=== PATIENT | female | born 1955 | race Caucasian/White ===

== ENCOUNTER → 2020-07-02 11:46 | Outpatient (CLI) | payer BC, SELFPAY ==
--- NOTE | 2020-07-02 | DI.MRI.S_ITS ---
PROCEDURE: MR ANKLE LT WO CON INDICATIONS: Pain in left ankle and joints of left foot TECHNIQUE: Noncontrast sagittal T1 spin echo and T2 fast spin echo with fat saturation, axial proton density fast spin echo and T2 fast spin echo with fat saturation, coronal T1 spin echo and T2 fast spin echo with fat saturation through the ankle/hindfoot. COMPARISON: None. FINDINGS: Image quality: Excellent. Bones and joints: No bone marrow contusions or fractures. No hindfoot coalitions. No osteochondral injuries of the talar dome. Tibiotalar joint effusion. Incidentally noted unfused accessory navicular Medial structures: Posterior tibialis intact. There is mild posterior tibialis tenosynovitis. Flexor digitorum longus intact. Flexor hallucis longus tendon intact. The posterior tibial neurovascular bundle appears normal within the tarsal tunnel, without extrinsic mass effect. Deltoid ligament complex appears intact. The spring ligament appears intact. Lateral structures: Anterior talofibular ligament is not seen presumably ruptured. Calcaneofibular ligament intact. Posterior talofibular ligament intact. Anterior and posterior tibiofibular ligaments appear intact, as is the intermalleolar ligament. Tibiofibular syndesmosis is normal in width at 2 mm or less. Peroneus longus and brevis tendons appear normal. There is mild peroneal tenosynovitis. Bony peroneal tubercle and retrotrochlear prominence are normal in size. Sinus tarsi demonstrates normal fatty signal, without edema, fibrosis, or cyst formation. Anterior structures: Tibialis anterior intact. Extensor hallucis longus intact. Extensor digitorum longus tendon intact. Dorsal talonavicular ligament appears intact. Posterior and plantar structures: Low-grade chronic distal Achilles tendinopathy and mild thickening. Medial and lateral bands of the plantar fascia intact. No abductor digiti quinti muscle atrophy to suggest Rendon neuropathy. IMPRESSION: Rupture of the anterior talofibular ligament, likely chronic. Mild posterior tibialis and peroneal tenosynovitis Tibiotalar joint effusion Low-grade chronic distal Achilles tendinopathy and mild thickening. Dictated by: Kenny Josue M.D. on 07/02/2020 at 13:40 Approved by: Kenny Josue M.D. on 07/02/2020 at 14:34
--- NOTE | 2020-07-02 | DI.RAD.S_ITS ---
PROCEDURE: XR ANKLE LT MIN 3V INDICATIONS: Pain in left ankle and joints of left foot TECHNIQUE: 3 views of the ankle were acquired. COMPARISON: [facility], MR, MR ANKLE LT WO CON, 07/02/2020, 12:35. FINDINGS: Bones: No fractures or dislocations. Ankle mortise is normally aligned. No suspicious bony lesions. Mild degenerative joint disease at the tibiotalar joint, subtalar joint and talonavicular joint. Calcaneal spurring. Soft tissues: No tibiotalar joint effusion. Achilles tendon appears normal. IMPRESSION: 1. Mild degenerative joint disease. 2. Calcaneal spurring. Dictated by: Miranda Foster M.D. on 07/02/2020 at 13:53 Approved by: Miranda Foster M.D. on 07/02/2020 at 13:55
== END ==
PROVIDERS: Family Provider Nurse Practitioner; PCP Family Medicine; Referring Provider Podiatrist; Visit Provider Podiatrist
DX: M25.572 Pain in left ankle and joints of left foot (principal); S93.492A Sprain of other ligament of left ankle, initial encounter; M65.872 Other synovitis and tenosynovitis, left ankle and foot; M25.472 Effusion, left ankle
CPT/HCPCS: 73610; 73721

== ENCOUNTER → 2021-01-08 12:06 | Outpatient (CLI) | payer BC, SELFPAY ==
--- NOTE | 2021-01-08 | DI.MRI.S_ITS ---
PROCEDURE: MR KNEE RT WO CON INDICATIONS: unspecified internal derangement of right knee TECHNIQUE: Noncontrast sagittal PD fast spin echo and T2 fast spin echo with fat saturation, sagittal 3-D FLASH with fat saturation; coronal T1 spin echo and PD fast spin echo with fat saturation, and axial PD fast spin echo with fat saturation through the knee. COMPARISON: None. FINDINGS: Menisci: Medial meniscus: Intact. Lateral meniscus: Intact. Cruciate ligaments: Anterior cruciate ligament: Intact. Posterior cruciate ligament: Intact. Medial structures: The medial collateral ligament: Intact. Semimembranosus tendon: Intact. Visualized pes anserinus tendons: Intact. Bursal fluid: none. Lateral structures: The lateral collateral ligament intact. Biceps femoris tendon appears intact. Popliteus tendon grossly unremarkable. Iliotibial band appears intact. Anterior structures: Quadriceps tendon: Intact. Medial patellofemoral ligament: Intact. Lateral patellofemoral ligament: Intact. Patellar tendon: Mild tendinopathy. Anterior soft tissues: Prepatellar and superficial infrapatellar subcutaneous edema/fluid. Deep infrapatellar region: Normal. Bones and cartilage: Marrow: No focal marrow contusion or discrete low signal fracture line. Medial compartment: Diffuse partial-thickness loss of the femoral cartilage. Lateral compartment: Diffuse partial-thickness loss of the central weight-bearing femoral and tibial cartilage. Patellofemoral compartment: Near full-thickness loss of the cartilage overlying the medial patellar facet and diffuse partial-thickness loss of the remaining patellar cartilage. Partial-thickness loss of the central and medial femoral trochlear cartilage. Joint space: Large joint effusion. Trace fluid between the semimembranosus and medial gastrocnemius tendons without definite formed cyst. Presumed debris and/or reactive synovitis seen in the superior aspect of suprapatellar joint space. IMPRESSION: Moderate osteoarthritis. Large joint effusion, with debris and/or reactive synovitis in the suprapatellar recess. Patellar tendinopathy with adjacent fluid and edema. Dictated by: Kenny Josue M.D. on 01/08/2021 at 13:46 Approved by: Kenny Josue M.D. on 01/08/2021 at 13:54
== END ==
PROVIDERS: Family Provider Nurse Practitioner; PCP Family Medicine; Referring Provider Orthopaedic Surgery Adult Reconstructive Orthopaedic Surgery; Visit Provider Orthopaedic Surgery Adult Reconstructive Orthopaedic Surgery
DX: M23.91 Unspecified internal derangement of right knee (principal); M17.11 Unilateral primary osteoarthritis, right knee; M25.461 Effusion, right knee
CPT/HCPCS: 73721

== ENCOUNTER → 2023-10-18 14:05 | Outpatient (CLI) | payer MEDICARE, OTHER, SELFPAY ==
--- NOTE | 2023-10-18 | DI.RAD.S_ITS ---
Bone Density Report Name: AGUS GARCIA Age: 68 Sex: Female Ethnicity: White Date of : 1955 Indication: monitoring treatment; Referring Provider: UNSPECIFIED Study: Bone densitometry was performed. Exam Date: October 18, 2023 Accession number: [id number] Bone Density: Region BMD T-score Z-score Classification AP Spine(L2, L3) 1.026 -0.3 1.7 Normal Femoral Neck (Left) 0.654 -1.8 -0.1 Osteopenia Total Hip (Left) 0.833 -0.9 0.5 Normal Femoral Neck (Right) 0.761 -0.8 0.8 Normal Total Hip (Right) 0.867 -0.6 0.7 Normal Total Hip Mean 0.850 -0.8 0.6 Normal World Health Organization criteria for BMD impression classify patients as: Normal (T-score at or above -1.0), Osteopenia (T-score between -1.0 and -2.5), or Osteoporosis (T-score at or below -2.5). 10-year Fracture Risk: FRAX not reported because: Treated for osteoporosis Previous Exams: -- Region Exam Age BMD T-score BMD Change BMD Change Date g/cm2 vs Baseline vs Previous -- AP Spine (L2-L3) 10/18/2023 68 1.026 -0.3 -0.096 (-8.6%)# -0.068 (-6.3%)# 04/19/2007 51 1.094 0.3 -0.028 (-2.5%)* -0.028 (-2.5%)* 04/02/2006 50 1.122 0.6 Total Hip(Left) 10/18/2023 68 0.833 -0.9 -0.254 (-23.4%)# -0.175 (-17.4%)# 04/19/2007 51 1.008 0.5 -0.079 (-7.3%)* -0.079 (-7.3%)* 04/02/2006 50 1.087 1.2 Total Hip(Right) 10/18/2023 68 0.867 -0.6 -0.239 (-21.6%)# -0.164 (-15.9%)# 04/19/2007 51 1.031 0.7 -0.075 (-6.7%)* -0.075 (-6.7%)* 04/02/2006 50 1.106 1.3 -- *Denotes significance at 95% confidence level, LSC for AP Spine = 0.022 g/cm2, LSC for Total Hip = 0.027 g/cm2 Rate of change results reflect vertebral levels common to all scans # Denotes dissimilar scan types or analysis methods Impression: The patient has low bone mass, based on the Left Femoral Neck T-score. No significant bone loss was observed. Discussion: PATIENT UNDER TREATMENT WITH NO SIGNIFICANT BMD LOSS SINCE LAST EXAM. In an untreated patient, BMD typically declines with age. A lack of decline or gain is usually a sign that treatment is efficacious and fracture risk is reduced. It is important to ask patients whether they are taking their medications and to encourage continued and appropriate compliance with their osteoporosis therapies to reduce fracture risk. It is also important to review their risk factors and encourage appropriate calcium and vitamin D intakes, exercise, fall prevention and other lifestyle measures. Follow-Up: Consider a repeat BMD and Vertebral Fracture Assessment (VFA) exam in 2 years or sooner if medically necessary, to reassess this patient's status. Reported by: MONO KESSLER M.D. on 10/18/2023 2:38:00 PM.
== END ==
PROVIDERS: Family Provider Nurse Practitioner; PCP Family Medicine; Referring Provider Physician Assistant; Visit Provider Physician Assistant
DX: M81.0 Age-related osteoporosis without current pathological fracture (principal)
CPT/HCPCS: 77080

== ENCOUNTER 2024-11-01 17:52 | Emergency (ER) | payer MEDICARE, OTHER, SELFPAY ==
[2024-11-01] VITALS (16 sets, daily range): BP systolic 102–138; BP diastolic 64–81; PULSE 59–80; RESP 14–19; TEMP 36.7; O2SAT 94–100
--- NOTE | 2024-11-01 | DI.CT.S_ITS ---
PROCEDURE: CT ANGIO HEAD AND NECK INDICATIONS: syncope with clotting disorder TECHNIQUE: After the administration of intravenous contrast, 1 mm thick sections acquired from the aortic arch through the [place]. 3-dimensional mrskteu-ajcbpjwan-rgigjxcdsk (MIP) and/or volume rendering reformats were acquired of the central intracranial vasculature and neck separately. For radiation dose reduction, the following was used: automated exposure control, adjustment of mA and/or kV according to patient size. COMPARISON: None. FINDINGS: Image quality: Diagnostic. BRAIN: CSF spaces: Ventricles are normal in size and shape. Basal cisterns are patent. No extra-axial fluid collections. Brain: No significant abnormality of the brain can be seen. Skull and face: Calvarium and facial bones appear intact, without suspicious lesions. Orbits appear normal. Sinuses: Sinuses and mastoids are clear. HEAD CT ANGIOGRAPHY: Anterior circulation: Intracranial internal carotid arteries are normal in size and flow. The flow within the paired anterior cerebral arteries is normal and symmetric. The flow within the middle cerebral arteries is normal and symmetric. The anterior communicating artery is seen. No aneurysms are seen. Posterior circulation: Visualized portions of the vertebral arteries demonstrate normal caliber, and join to form a normal appearing basilar artery. Flow within the posterior cerebral arteries is normal and symmetric. No aneurysms are seen. NECK CT ANGIOGRAPHY: Carotid system: The great vessels demonstrate a conventional anatomy as they arise from the aortic arch. The origins of the common carotid arteries appear patent. The common carotid arteries demonstrate normal caliber and courses. The bifurcation regions are both widely patent. The internal carotid arteries demonstrate normal calibers and courses. Posterior circulation: The origins of the vertebral arteries both appear widely patent. Dominant left vertebral artery. The more superior extracranial portions of both vertebral arteries also demonstrate normal courses and calibers. They join to form a normal appearing basilar artery. Soft tissues: Visualized neck soft tissues demonstrate no suspicious abnormalities. Bones: No suspicious bony lesions. Visualized cervical spine appears normally aligned. IMPRESSION: 1. No significant intracranial arterial abnormality is seen. 2. No significant abnormality is seen within the arteries of the neck. Any quantitative measurements of stenosis were performed using NASCET criteria. Dictated by: Emile Sánchez M.D. on 11/01/2024 at 21:48 Approved by: Emile Sánchez M.D. on 11/01/2024 at 21:50
--- NOTE | 2024-11-01 17:53 | DI.RAD.S_ITS ---
PROCEDURE: XR CHEST 1V INDICATIONS: chest pain TECHNIQUE: One view of the chest was acquired. COMPARISON: None. FINDINGS: Surgical changes and devices: None. Lungs and pleura: Lungs are clear. No pleural effusions or pneumothorax. Mediastinum: Mediastinal contours appear normal. Heart size is normal. Bones and chest wall: No suspicious bony lesions. Overlying soft tissues appear unremarkable. IMPRESSION: No acute cardiopulmonary abnormality is seen. Approved by: Clayton Hand M.D. on 11/01/2024 at 18:41
--- NOTE | 2024-11-01 17:58 | EKG_ITS ---
[address] [address] Test Date: 2024-11-01 Pat Name: Carl Grullon Department: Room: Gender: Female [employer]: KERON : 1955 Requested By: Order Number: [id number] Reading MD: Fantasma Pérez Measurements Intervals [place] Rate: 63 P: 75 NC: 182 QRS: 55 QRSD: 90 T: 17 QT: 424 QTc: 433 Interpretive Statements Normal sinus rhythm ST & T wave abnormality, consider inferior ischemia Electronically Signed On 11-07-2024 20:08:10 PDT by Fantasma Pérez
[2024-11-01 18:25] LABS: Prothrombin Time 11.2 SECONDS (9.4-12.5)
--- NOTE | 2024-11-01 18:26 | PC.NURSE ---
Pt is awake and alert. Denies pain. Says that her BP is never 102/54. Usually 120/78
[2024-11-01 18:28] LABS: PTT Partial Thromboplastin Tim 27 SECONDS (25.1-36.5)
[2024-11-01 18:35] LABS: Alanine Aminotransferase 22 IU/L (<35); Albumin Globulin Ratio 1.4 (1.0-2.8); Alkaline Phosphatase 54 U/L (38-126); Aspartate Aminotransferase 36 IU/L (14-36); Blood Urea Nitrogen 13 mg/dL (7-17); Calcium 8.9 mg/dL (8.4-10.2); Carbon Dioxide 27 mmol/L (22-32); Chloride 106 mmol/L (98-107); Creatine Kinase 49 U/L (30-135); Estimated Glomerular Filt Rate > 60 mL/min (>60); Globulin 2.9 g/dL (1.7-4.1); Glucose 107 mg/dL (80-110); HEMOLYSIS 25 (0-50); Lipase 145 U/L (23-300); Magnesium 2.1 mg/dL (1.6-2.3); Sodium 138 mmol/L (137-145); Total Protein 6.9 g/dL (6.3-8.2)
[2024-11-01 18:46] LABS: Add Manual Diff / Slide Review NO; Basophils Absolute Auto 100 /uL (0-100); Basophils Percent Auto 0.7 % (0-2); Eosinophils Absolute Auto 100 /uL (0-450); Eosinophils Percent Auto 0.7 % (2-4); Hematocrit 37.1 % (36-46); Hemoglobin 12.2 g/dL (12.0-16.0); Lymphocytes Absolute Auto 600 /uL (1100-4500); Lymphocytes Percent Auto 7.7 % (25-40); Mean Corpuscular Hemoglobin 30.6 PG (26-34); Monocytes Absolute Auto 200 /uL (0-900); NT-proBNP (BNP-Adult 18+) 281 pg/mL (<125); Neutrophils Absolute Auto 7500 /uL (1500-7000); Neutrophils Percent Auto 88.9 % (50-75); Platelet Count 285 X10^3/uL (150-400); Red Blood Cell Count 3.99 X10^6/uL (4.0-5.2); Red Cell Distribution Width 14.4 % (11.6-14.8); White Blood Cell Count 8.4 X10^3/uL (4.5-11.0)
[2024-11-01 18:47] LABS: Mean Corpuscular HGB Conc 32.9 % (30-36)
--- NOTE | 2024-11-01 19:50 | PC.NURSE ---
pt ambulated to the br without any c/o dizziness or lightheadedness, gait steady
--- NOTE | 2024-11-01 20:04 | ED_ITS ---
HPI - Syncope General Chief Complaint: Syncope Stated Complaint: Syncope Time Seen by Provider: 11/01/24 20:04 Source: patient and EMS History of Present Illness HPI narrative: 69-year-old female with a history of endometrial cancer status post hysterectomy in 2005, hypothyroidism comes into the ED via EMS for evaluation of syncope.Patient states that she was on anticoagulation, warfarin 3 years ago for 15 years for a history of a clotting disorder but was taken off due to discussion with her doctor stating there is no benefit to staying on it any longer. According to the patient she had just completed a colonoscopy, she was returning to [place] on the [place], states that she had a witnessed syncopal episode lasting no more than 30 seconds no seizure-like activity, patient is awake alert oriented feeling well not complaining of any symptoms, she states that after her colonoscopy she tolerated a hamburger fine, she is not having any lower GI bleeding currently. She does state that prior to the syncopal episode she felt worsening cramping abdominal pressure. She denies any other symptoms such as headache visual disturbances chest pain shortness breath fever chills nausea vomiting and tolerating or any other GI/ symptoms time. Related Data Previous Rx's Medication Instructions Recorded levothyroxine 88 mcg tablet 0.088 mg PO QAM #90 tabs 03/02/16 estradiol 0.01% (0.1 mg/gram) 0.5 g vaginal 2XW #42.5 grams 11/24/23 vaginal cream (Estrace) Allergies Allergy/AdvReac Type Severity Reaction Status Date / Time LAUNDRY DETERGENT Allergy Intermediate RASH Uncoded 11/24/23 10:41 ENVIRONMENTAL Allergy Mild STUFFY NOSE Uncoded 11/24/23 10:41 Review of Systems Review of Systems Narrative: General: Denies fever, chills, weight loss HEENT: Denies headache, eye drainage, eye irritation, head trauma, sore throat, voice change Cardiovascular: Denies any chest pain, palpitations, tachycardia Respiratory: Denies any shortness of breath, cough, wheeze, stridor GI/: Denies any abdominal pain, nausea, vomiting, diarrhea, bright red blood per rectum, melanotic stools, urinary frequency, urinary retention, dysuria, hematuria MSK: Denies any joint pain, muscle pains, swelling Skin: Denies any rashes, lesions, discoloration Neuro: Positive syncope, Denies any headache, lightheadedness, dizziness, fainting, weakness Psych: Denies SI/HI Patient History Surgical History (Updated 11/23/17 @ 05:07 by Conversion Provider) Status post hysterectomy Family History (Updated 02/02/16 @ 00:00 by Conversion Provider) Father Age: 98 Hairy cell leukemia Prostate cancer Grandfather Heart disease Grandmother Heart disease High cholesterol Mother Age: 98 Manic depressive disorder High cholesterol Mental health problem Grandfather Heart disease Social History Smoking Status: Never smoker Smoking Status: Never smoker Exam Narrative Exam Narrative: General: Cooperative, well-developed, not in acute distress HEENT: Normocephalic, atraumatic, PERRLA, normal sclera, eyelids normal Neck: Active full range of motion, atraumatic Chest: Normal to inspection, negative crepitus, no overlying erythema ecchymosis Respiratory: Normal respiratory effort, not in acute respiratory distress, clear to auscultation bilaterally negative cough, wheeze, tachypnea, rhonchi, rales Cardiology: Regular rate rhythm negative gallop, murmur, rubs GI/: No tenderness to palpation, soft, non rigid, normal to inspection, exam deferred MSK: Full active range of motion in all 4 extremities, atraumatic, no tenderness to palpation of any bony prominences Skin: No rashes or lesions noted Neuro: NIH of 0, no focal deficits Alert awake oriented x3, moves all 4 extremities spontaneously, cranial nerves intact, able to answer all questions appropriately follows commands appropriately Psych: Cooperative, negative suicidal or homicidal ideations Initial Vital Signs Initial Vital Signs: Vital Signs Pulse Rate 66 11/01/24 17:54 Blood Pressure 102/67 11/01/24 17:54 Pulse Oximetry 98 11/01/24 17:54 Course Orders Ordered: ED Orders 11/01/24 17:53 XR chest 1V Stat EKG-12 Lead Stat 11/01/24 18:06 Complete Blood Count AUTO DIFF Stat Comprehensive Metabolic Panel Stat Lipase Stat Magnesium Stat NT-proBNP (BNP-Adult 18+) Stat PTT Partial Thromboplastin Fernando Stat Prothrombin Time INR Stat Troponin & CK Cardiac Panel Stat 11/01/24 20:05 Trop I [Troponin I] Stat 11/01/24 20:21 CT angio chest PE protocol Stat CT head/brain wo con Stat Discontinued Medications Aspirin (Aspirin 81 Mg Chew Tab) 324 mg PO NOW ONE Stop: 11/01/24 17:54 Last Admin: 11/01/24 18:40 Dose: Not Given Documented By: Sodium Chloride (Normal Saline 0.9%) 1,000 mls @ 1,000 mls/hr IV BOLUS ONE Stop: 11/01/24 21:20 Last Infusion: 11/01/24 22:23 Dose: Infused Documented By: Admin: 11/01/24 21:18 Dose: 1,000 mls/hr Documented By: OMER Vital Signs Vital signs: Vital Signs - 8 hr 11/01/24 17:54 11/01/24 17:54 11/01/24 18:00 Temperature Pulse Rate 66 63 Respiratory Rate Blood Pressure 102/67 Pulse Oximetry 98 100 Oxygen Delivery Method 11/01/24 18:20 11/01/24 18:30 11/01/24 19:00 Temperature 98.1 F Pulse Rate 80 69 69 Respiratory Rate 19 17 17 Blood Pressure 102/67 Pulse Oximetry 99 98 96 Oxygen Delivery Method Room Air Room Air 11/01/24 19:30 11/01/24 20:02 11/01/24 20:03 Temperature Pulse Rate 70 71 71 Respiratory Rate 18 17 Blood Pressure Pulse Oximetry 97 95 97 Oxygen Delivery Method 11/01/24 20:03 11/01/24 20:15 11/01/24 20:15 Temperature Pulse Rate 69 Respiratory Rate 19 Blood Pressure 125/64 116/66 Pulse Oximetry 96 Oxygen Delivery Method 11/01/24 20:30 11/01/24 20:30 11/01/24 21:20 Temperature Pulse Rate 72 71 Respiratory Rate 18 Blood Pressure 117/69 Pulse Oximetry 95 95 Oxygen Delivery Method 11/01/24 21:20 Temperature Pulse Rate Respiratory Rate Blood Pressure 138/81 Pulse Oximetry Oxygen Delivery Method MDM - Syncope Differential Diagnosis Differential diagnosis: Likely syncope due to orthostatic hypotension, vasovagal syncope, dehydration and other (Electrolyte abnormality, ACS, pneumonia) Lab Data 11/01/24 18:06 11/01/24 18:06 Labs: Lab Results 11/01/24 11/01/24 Range/Units 18:06 20:05 WBC 8.4 (4.5-11.0) X10^3/uL RBC 3.99 L (4.0-5.2) X10^6/uL Hgb 12.2 (12.0-16.0) g/dL Hct 37.1 (36-46) % MCV 93.0 (80-100) fL MCH 30.6 (26-34) PG MCHC 32.9 (30-36) % RDW 14.4 (11.6-14.8) % Plt Count 285 (150-400) X10^3/uL Neut % (Auto) 88.9 H (50-75) % Lymph % (Auto) 7.7 L (25-40) % Morrison % (Auto) 2.0 L (3-14) % Eos % (Auto) 0.7 L (2-4) % Baso % (Auto) 0.7 (0-2) % Neut # (Auto) 7500 H (0858-6867) /uL Lymph # (Auto) 600 L (4540-0223) /uL Morrison # (Auto) 200 (0-900) /uL Eos # (Auto) 100 (0-450) /uL Baso # (Auto) 100 (0-100) /uL PT 11.2 (9.4-12.5) SECONDS INR 1.0 (0.9-1.3) APTT 27 (25.1-36.5) SECONDS Sodium 138 (137-145) mmol/L Potassium 4.0 (3.4-5.1) mmol/L Chloride 106 (98-107) mmol/L Carbon Dioxide 27 (22-32) mmol/L BUN 13 (7-17) mg/dL Creatinine 0.93 (0.52-1.04) mg/dL Estimated GFR > 60 (>60) mL/min BUN/Creatinine Ratio 14.0 (6-22) Glucose 107 (80-110) mg/dL Calcium 8.9 (8.4-10.2) mg/dL Magnesium 2.1 (1.6-2.3) mg/dL Total Bilirubin 1.0 (0.2-1.3) mg/dL AST 36 (14-36) IU/L ALT 22 (<35) IU/L Alkaline Phosphatase 54 (38-126) U/L Total Creatine Kinase 49 (30-135) U/L Troponin I 0.020 0.018 (0.01-0.034) ng/mL NT-Pro-B Natriuret Pep 281 H (<125) pg/mL Total Protein 6.9 (6.3-8.2) g/dL Albumin 4.0 (3.5-5.0) g/dL Globulin 2.9 (1.7-4.1) g/dL Albumin/Globulin Ratio 1.4 (1.0-2.8) Lipase 145 (23-300) U/L Urine Dip Bedside Urine Glucose Negative Bedside Urine Bilirubin - Negative Bedside Urine Ketone - Negative Urine Specific [place] 1.010 Bedside Urine Occult Blood - Negative Bedside Urine pH 7.5 Bedside Urine Protein - Negative Bedside Urine Urobilinogen - Negative Bedside Urine Nitrite - Negative Bedside Urine Leukocytes - Negative Esterase Imaging Data Chest x-ray: Radiologist's Impression: [address] [address] XRay Report Signed Patient: Carl Grullon MR#: [id number] : 1955 Acct:[id number] Age/Sex: 69 / F Date of Service: 11/01/24 Loc: ED Accession Number: [id number] Procedure: XR chest 1V Ordering Provider: Ramiro Davidson MD PROCEDURE: XR CHEST 1V INDICATIONS: chest pain TECHNIQUE: One view of the chest was acquired. COMPARISON: None. FINDINGS: Surgical changes and devices: None. Lungs and pleura: Lungs are clear. No pleural effusions or pneumothorax. Mediastinum: Mediastinal contours appear normal. Heart size is normal. Bones and chest wall: No suspicious bony lesions. Overlying soft tissues appear unremarkable. IMPRESSION: No acute cardiopulmonary abnormality is seen. CT scan - head: Radiologist's Impression: [address] [address] [address] Scan Report Signed Patient: Carl Grullon MR#: [id number] : 1955 Acct:[id number] Age/Sex: 69 / F Date of Service: 11/01/24 Loc: ED Accession Number: [id number] Procedure: CT head/brain wo con Ordering Provider: Fantasma Norris D.O. PROCEDURE: CT HEAD/BRAIN WO CON INDICATIONS: syncope TECHNIQUE: Noncontrast 4.5 mm thick angled axial sections acquired from the foramen magnum to the vertex, with coronal and sagittal reformats. For radiation dose reduction, the following was used: automated exposure control, adjustment of mA and/or kV according to patient size. COMPARISON: [facility], CT, CT ANGIO HEAD AND NECK, 11/01/2024, 20:32. FINDINGS: Image quality: Diagnostic. CSF spaces: Basal cisterns are patent. No extra-axial fluid collections. Ventricles are normal in size and shape. Brain: No midline shift. No intracranial masses or hemorrhage. Lima-white matter interface is normal. Skull and face: Calvarium and visualized facial bones are intact, without suspicious lesions. Sinuses: Visualized sinuses and mastoids are clear. IMPRESSION: 1. No acute intracranial process. CT scan - chest: Radiologist's Impression: [address] [address] [address] Scan Report Signed Patient: Carl Grullon MR#: [id number] : 1955 Acct:[id number] Age/Sex: 69 / F Date of Service: 11/01/24 Loc: ED Accession Number: [id number] Procedure: CT angio chest PE protocol Ordering Provider: Fantasma Norris D.O. PROCEDURE: CT ANGIO CHEST PE PROTOCOL INDICATIONS: syncope, hx of PE and clotting disorder TECHNIQUE: After the administration of intravenous contrast, 2 mm thick sections acquired from the pulmonary apices to the posterior costophrenic angles. 3-dimensional maximum intensity projection (MIP) coronal and sagittal reformats were then acquired through the thorax. For radiation dose reduction, the following was used: automated exposure control, adjustment of mA and/or kV according to patient size. COMPARISON: [facility], CR, XR CHEST 1V, 11/01/2024, 18:00. FINDINGS: Image quality: Diagnostic. Pulmonary arteries: Pulmonary arteries are normal in size, and demonstrate no intraluminal filling defects to suggest central pulmonary embolism. Lower Neck: No enlarged lymph nodes. Thyroid: No thyroid nodules which require sonographic follow up, per consensus guidelines. Axillae: No enlarged lymph nodes. Chest Wall: Unremarkable. Bones: T11 and to a lesser degree T10 hemangiomas. Lungs and Pleura: No pneumothorax or pleural effusions. No consolidation or suspicious nodules. Heart: Heart size is normal. No pericardial effusion. Thoracic Vessels: No aortic aneurysm. Mediastinum and Lana: No enlarged lymph nodes. Esophagus: No wall thickening. No hiatal hernia. Upper Abdomen: Visualized upper abdomen solid organs and bowel loops appear normal. IMPRESSION: No pulmonary embolus. No acute cardiopulmonary process. ECG Data Interpretation: EKG interpreted ED physician sinus 63 beats per minute QTC [address] changes no STEMI MDM Narrative Medical decision making narrative: 69-year-old female with a history of endometrial cancer status post hysterectomy in 2005, hypothyroidism presenting for syncopal episode. Patient states that she was on anticoagulation, warfarin 3 years ago for 15 years for a history of a clotting disorder but was taken off due to discussion with her doctor stating there is no benefit to staying on it any longer. Patient had a colonoscopy earlier today at [facility], felt fine after tolerated a hamburger after, was on her way back to [place] with a ferritin had a witnessed syncopal episode lasting no more than 30 seconds no seizure-like activity, patient at time of evaluation without any focal neurological deficits NIH of 0, she states that she is feeling completely fine, was able to stand walk ambulate unassisted here in the emergency department, patient without any leukocytosis Chem panel unremarkable, initial troponin indeterminate at 0.020, repeat 0.018, EKG nonischemic in nature, chest x-ray without any acute cardiopulmonary abnormalities, patient with a [place] syncope score of 0, patient has not had any lower GI bleeding while here in the emergency department. Patient had CT scan of her head without any acute abnormalities, CTA chest without PE. Patient was instructed to follow up with her primary care doctor in outpatient setting she was given strict return precautions she verbalized understanding of this and agrees to being discharged home with outpatient follow up Discharge Plan Departure Patient Disposition: Home Clinical Impression: Syncope Instructions: DI for Syncope in Adults (Fainting) Activity Restrictions/Additional Instructions: Please follow up with your primary care doctor Please read the discharge instructions sheet carefully and bring all papers to all doctor follow-up visits, as it may contain information that your doctor may want to see. Disease processes change and evolve, if your symptoms worsen or if you develop any new symptoms that are concerning to you please return for evaluation. Your evaluation today does not show any evidence of any life- threatening/serious illnesses requiring admission to the hospital or surgery. Please follow-up with your doctor for re-evaluation in approximately 1 day. Seek immediate medical attention for any worrisome symptoms. *If you do not have a primary care provider please contact the [facility] Resource line at [phone]. They will ask some questions about your medical history and help get you set up with a doctor in the community. Prescriptions: No Action levothyroxine 88 MCG tablet 0.088 mg PO QAM Qty: 90 1RF estradiol [Estrace] 0.01 % (0.1 mg/gram) cream 0.5 g vaginal 2XW Qty: 42.5 3RF Rx Instructions: 0.5gm in vagina twice a week, and a small amount on the outside twice a week Referrals: Radha Ortiz MD [Primary Care Provider] - Stand Alone Forms: Patient Portal/API/Survey
--- NOTE | 2024-11-01 20:21 | DI.CT.S_ITS ---
PROCEDURE: CT HEAD/BRAIN WO CON INDICATIONS: syncope TECHNIQUE: Noncontrast 4.5 mm thick angled axial sections acquired from the foramen magnum to the vertex, with coronal and sagittal reformats. For radiation dose reduction, the following was used: automated exposure control, adjustment of mA and/or kV according to patient size. COMPARISON: [facility], CT, CT ANGIO HEAD AND NECK, 11/01/2024, 20:32. FINDINGS: Image quality: Diagnostic. CSF spaces: Basal cisterns are patent. No extra-axial fluid collections. Ventricles are normal in size and shape. Brain: No midline shift. No intracranial masses or hemorrhage. Lima-white matter interface is normal. Skull and face: Calvarium and visualized facial bones are intact, without suspicious lesions. Sinuses: Visualized sinuses and mastoids are clear. IMPRESSION: 1. No acute intracranial process. Dictated by: Gertrudis Bruno M.D. on 11/01/2024 at 21:04 Approved by: Gertrudis Bruno M.D. on 11/01/2024 at 21:08
--- NOTE | 2024-11-01 20:21 | DI.CT.S_ITS ---
PROCEDURE: CT ANGIO CHEST PE PROTOCOL INDICATIONS: syncope, hx of PE and clotting disorder TECHNIQUE: After the administration of intravenous contrast, 2 mm thick sections acquired from the pulmonary apices to the posterior costophrenic angles. 3-dimensional maximum intensity projection (MIP) coronal and sagittal reformats were then acquired through the thorax. For radiation dose reduction, the following was used: automated exposure control, adjustment of mA and/or kV according to patient size. COMPARISON: [facility], CR, XR CHEST 1V, 11/01/2024, 18:00. FINDINGS: Image quality: Diagnostic. Pulmonary arteries: Pulmonary arteries are normal in size, and demonstrate no intraluminal filling defects to suggest central pulmonary embolism. Lower Neck: No enlarged lymph nodes. Thyroid: No thyroid nodules which require sonographic follow up, per consensus guidelines. Axillae: No enlarged lymph nodes. Chest Wall: Unremarkable. Bones: T11 and to a lesser degree T10 hemangiomas. Lungs and Pleura: No pneumothorax or pleural effusions. No consolidation or suspicious nodules. Heart: Heart size is normal. No pericardial effusion. Thoracic Vessels: No aortic aneurysm. Mediastinum and Lana: No enlarged lymph nodes. Esophagus: No wall thickening. No hiatal hernia. Upper Abdomen: Visualized upper abdomen solid organs and bowel loops appear normal. IMPRESSION: No pulmonary embolus. No acute cardiopulmonary process. Dictated by: Gertrudis Bruno M.D. on 11/01/2024 at 22:53 Approved by: Gertrudis Bruno M.D. on 11/01/2024 at 22:55
[2024-11-01 20:50] LABS: Troponin I 0.018 ng/mL (0.01-0.034)
[2024-11-01] MEDS: SODIUM CHLORIDE 0.9% 1,000 ML 1000 ML IV (21:18)
== END 2024-11-01 23:35 | disposition home or self-care (01) ==
PROVIDERS: Emergency Medicine; Emergency Provider Student in an Organized Health Care Education/Training Program; Family Provider Nurse Practitioner; PCP Family Medicine
DX: R55 Syncope and collapse (principal)
CPT/HCPCS: 70450; 70496; 70498; 71045; 71275; 80053; 81003; 82550; 83690; 83735; 83880; 84484; 85025; 85610; 85730; 93005; 96360; 99284; Q9967

== ENCOUNTER → 2025-01-18 12:47 | Outpatient (CLI) | payer MEDICARE, OTHER, SELFPAY ==
--- NOTE | 2025-01-18 12:49 | DI.MG.S_ITS ---
MM screening mammo BI: 01/18/2025. BI-RADS: 2 CLINICAL: 69-year old female for bilateral screening mammogram. Tyrer-Cuzick lifetime risk of 8.4%. No personal or first-degree family history of breast cancer. The patient had a prior right breast biopsy. PRIOR EXAMS Outside films 11/06/2022, 10/20/2021, 11/08/2018, and 10/14/2017. MAMMOGRAPHY TECHNIQUE: 2D and 3D (tomosynthesis) digital mammographic views obtained, with additional images as needed for full coverage. Current study was also evaluated with a Computer Aided Detection (CAD) system. DENSITY C. The breasts are heterogeneously dense, which may obscure small masses. MAMMOGRAPHY FINDINGS Right: Benign-appearing masses and calcification noted on the right. There are no suspicious masses, calcifications, or other findings in the breast. Left: No suspicious mass, asymmetry, microcalcification, or other abnormality seen. IMPRESSION: Right * No evidence of malignancy with benign findings. Left * No evidence of malignancy. RECOMMENDATIONS Bilateral * Annual screening mammography. OVERALL ASSESSMENT CATEGORY BI-RADS-2: Benign. [employer] recommends annual screening mammography beginning at age 40 for women with average risk of breast cancer. ELECTRONICALLY SIGNED: Master Vivas M.D. on 01/21/2025 at 10:00:58 PM PT Interpreting Station ID: [id number]
== END ==
LOC: MAMMO 12:48
PROVIDERS: Family Provider Nurse Practitioner; PCP Family Medicine; Referring Provider Family Medicine; Visit Provider Family Medicine
DX: Z12.31 Encounter for screening mammogram for malignant neoplasm of breast (principal); R92.333 Mammographic heterogeneous density, bilateral breasts
CPT/HCPCS: 77063; 77067